=== PATIENT | female | born 1990 | race Caucasian/White ===

== ENCOUNTER 2019-04-20 07:11 | Emergency (ER) | payer SELFPAY ==
[~2019-04-20] VITALS: Ht 177 cm; Wt 99.4 kg
[2019-04-20] MEDS ORDERED: IBUP-1780 PO (07:26)
[2019-04-20] MEDS ORDERED: CYCL10TA9 PO (07:26)
--- NOTE | 2019-04-20 07:27 | ED Lower Extremity ---
General Chief Complaint: Lower Extremity Stated Complaint: LT KNEE INJURY Source: patient Exam Limitations: no limitations History of Present Illness Date Seen by Provider: Apr 20, 2019 Time Seen by Provider: 07:24 Initial Comments Patient states she slipped and fell 3 days ago in her home. Landed (falling forward) on her left knee. since then having pain in left thigh and hip. Pain w certain movement. No pain at rest. Able to bear weight. No bruising or swelling. No pain in knee joint. Allergies and Home Medications Allergies Coded Allergies: No Known Drug Allergies (Unverified , 04/20/19) Home Medications Cyclobenzaprine HCl 10 Mg Tablet, 10 MG PO HS Prescribed by: JOSHUA WHEAT on 04/20/19725 Ibuprofen 800 Mg Tablet, 800 MG PO Q8H PRN for PAIN-MILD Prescribed by: JOSHUA WHEAT on 04/20/19725 Patient Home Medication List Home Medication List Reviewed: Yes Review of Systems Constitutional: no symptoms reported Musculoskeletal: see HPI; No back pain, No joint pain, No joint swelling; muscle pain, muscle stiffness; No muscle cramps, No muscle twitching, No muscle weakness, No neck pain Skin: no symptoms reported Past Fwejefb-Xacout-Ioxnww Hx Past Med/Social Hx: Reviewed Nursing Past Med/Soc Hx Patient Social History Recent Foreign Travel: No Physical Exam Vital Signs Capillary Refill : Height, Weight, BMI Height: '" Weight: lbs. oz. kg; BMI Method: General Appearance: WD/WN, no apparent distress Back: normal inspection, no CVA tenderness, no vertebral tenderness Hips: bilateral hip non-tender, bilateral hip normal inspection, bilateral hip normal range of motion, bilateral hip no evidence of injury Legs: bilateral leg non-tender, bilateral leg normal inspection, bilateral leg normal range of motion, bilateral leg no evidence of injury Knees: bilateral knee non-tender, bilateral knee normal inspection, bilateral knee normal range of motion, bilateral knee no evidence of injury Ankles: bilateral ankle non-tender, bilateral ankle normal inspection, bilateral ankle normal range of motion, bilateral ankle no evidence of injury Neurologic/Tendon: normal sensation, normal motor functions Neurologic/Psychiatric: alert, normal mood/affect Skin: normal color, warm/dry; No ecchymosis Progress/Results/Core Measures Progress Progress Note : Progress Note Minimal trauma w simple fall to floor at home. Normal exam without significant clinical findings. Symptomatic care and follow-up advised. Work note written for today, without restrictions. Departure Impression Primary Impression: Strain of knee and leg, left Qualified Codes: S86.912A - Strain of unspecified muscle(s) and tendon(s) at lower leg level, left leg, initial encounter Disposition: HOME, SELF-CARE Condition: Stable Departure-Patient Inst. Decision time for Depature: 07:24 Referrals: NO,LOCAL PHYSICIAN (PCP/Family) Primary Care Physician Patient Instructions: Lower Extremity Muscle Strain Scripts Ibuprofen (Ibuprofen) 800 Mg Tablet 800 MG PO Q8H PRN for PAIN-MILD, #30 TAB Prov: JOSHUA WHEAT DO 04/20/19 Cyclobenzaprine HCl (Cyclobenzaprine HCl) 10 Mg Tablet 10 MG PO HS for Spasms, #14 TAB Prov: JOSHUA WHEAT DO 04/20/19 Work/School Note: Work Release Form Date Seen in the Emergency Department: Apr 20, 2019 Return to Work: Apr 20, 2019 Restrictions: No Restrictions JOSHUA WHEAT DO Apr 20, 2019 07:27
[2019-04-20 07:31] VITALS: BP 150/84
== END 2019-04-20 07:34 | disposition home or self-care (01) ==
LOC: ER FS 07:12
DX: S86.912A Strain of unspecified muscle(s) and tendon(s) at lower leg level, left leg, initial encounter (principal); W01.0XXA Fall on same level from slipping, tripping and stumbling without subsequent striking against object, initial encounter; Y92.009 Unspecified place in unspecified non-institutional (private) residence as the place of occurrence of the external cause
CPT/HCPCS: 99282

== ENCOUNTER 2022-07-20 19:22 | Emergency (ER) | payer SELFPAY ==
[~2022-07-20] VITALS: Ht 180.3 cm; Wt 104.5 kg
[~2022-07-20 19:22] MED LIST: CYCL10TA25 PO; IBUP-1780 PO
[2022-07-20 19:27] VITALS: BP 138/87
[2022-07-20] MEDS ORDERED: AUGMENTIN 875 MG TAB (AMOXICILLIN/CLAVULANATE) PO STA (19:32)
[2022-07-20] MEDS ORDERED: AMOX1TAB12 PO ×2 (20:01→20:21)
--- NOTE | 2022-07-20 20:02 | ED Upper Extremity ---
General Chief Complaint: Bite-Animal/Human/Insect Stated Complaint: CAT BITE, R ARM LAC Nursing Triage Note: Patient states that her two cats began fighting at home. She was trying to split them up and she got bitten in the process. Patient has a small laceration the the right wrist. 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 Source: patient Exam Limitations: no limitations History of Present Illness Date Seen by Provider: July 20, 2022 Time Seen by Provider: 19:27 Initial Comments 31-year-old female with no pertinent past medical history coming in after she was bitten in her arm by a cat. She had 2 cats fighting at home, she tried to break it up, and got bitten on her right wrist with a small laceration. Happened roughly 30 minutes prior to arrival. Tetanus is up-to-date. She has not taken any medicines for pain as of yet. Otherwise denying any other acute complaints Allergies and Home Medications Allergies Coded Allergies: No Known Drug Allergies (Unverified , 04/20/19) Patient Home Medication List Home Medication List Reviewed: Yes Amoxicillin/Potassium Clav (Amox Tr-K Clv 875-125 mg Tab) 875 Mg-125 Mg Tablet, 1 EACH PO Q12H Prescribed by: SUHAIL SINGLETON on 07/20/222000 Cyclobenzaprine HCl (Cyclobenzaprine HCl) 10 Mg Tablet, 10 MG PO HS Prescribed by: JOSHUA WHEAT on 04/20/19 07 Ibuprofen (Ibuprofen) 800 Mg Tablet, 800 MG PO Q8H PRN for PAIN-MILD Prescribed by: JOSHUA WHEAT on 04/20/19 0726 Review of Systems Constitutional: No fever EENTM: no symptoms reported Respiratory: no symptoms reported Cardiovascular: no symptoms reported Musculoskeletal: see HPI Skin: see HPI Psychiatric/Neurological: No Symptoms Reported Past Wewafaa-Fqlwvg-Aqnbox Hx Patient Social History Tobacco Use?: Yes Substance use?: Yes Substance type: Marijuana Alcohol Use?: No Pt feels they are or have been: No Immunizations Up To Date COVID19 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 oz. kg; 32.00 BMI Method: General Appearance: WD/WN, no apparent distress HEENT: PERRL/EOMI Neck: normal inspection Cardiovascular: regular rate, rhythm Respiratory: no respiratory distress, no accessory muscle use Shoulder: normal inspection, non-tender, no evidence of injury, normal ROM Elbow/Forearm: normal inspection, non-tender, no evidence of injury, normal ROM Wrist: Yes soft tissue tenderness (1 cm laceration to the dorsal aspect of the right wrist that is superficial with a couple punctate puncture wounds as well in the same area, neurovascularly intact distal to the injury, normal tendon exam) Neurologic/Tendon: normal sensation, normal motor functions, normal tendon functions Neurologic/Psychiatric: no motor/sensory deficits, alert, normal mood/affect Skin: normal color, warm/dry Procedures/Interventions Wound Location: Upper Extremities Other Wound Location right wrist Wound Length (cm): 1 Wound's Depth, Shape: superficial Wound Explored: clean Irrigated w/ Saline (ccs): 500 Anesthesia: 1% Lidocaine Volume Anesthetic (ccs): 2 Suture: Ethlion Suture Size: 4-0 Number of Sutures: 1 Progress The laceration was loosely closed with 1 suture given it was an animal bite after extensive cleaning. Patient will go home on antibiotics. She tolerated the procedure well Progress/Results/Core Measures Results/Orders My Orders Orders - SUHAIL SINGLETON MD Amoxicillin/Clavulanate Tablet (Augmenti (07/20/22 19:32) Vital Signs/I&O 07/20/22 19:27 Temp 36.3 Pulse 68 Resp 16 B/P (MAP) 138/87 (104) Pulse Ox 96 O2 Delivery Room Air Blood Pressure Mean: 104 Progress Progress Note : Progress Note 31-year-old female presenting after a cat bite. ABCs were intact and vitals were stable on presentation. Physical exam with a couple punctate wounds to her right wrist and a small laceration that is superficial. The wound was cleaned extensively, tetanus is up-to-date, it was numbed, and the laceration was closed with a blue suture. She was given Augmentin here and will go home on antibiotics as well. I believe she is otherwise stable for discharge with outpatient follow-up. She was sent home with strict return precautions Departure Impression Primary Impression: Cat bite Qualified Codes: W55.01XA - Bitten by cat, initial encounter Additional Impression: Laceration Disposition: HOME, SELF-CARE Condition: Stable Departure-Patient Inst. Decision time for Depature: 20:20 Referrals: NO,LOCAL PHYSICIAN (PCP/Family) Primary Care Physician Patient Instructions: Laceration Repair With Stitches (DC) Add. Discharge Instructions: The stitches need to come out in 7 to 10 days. If you have any redness spreading up your skin, pus coming out of the wound, or new fever with it, we would want you to be evaluated by doctor. Take ibuprofen or Tylenol as needed for pain. You will be on antibiotics for the next week. Scripts Amoxicillin/Potassium Clav (Amox Tr-K Clv 875-125 mg Tab) 875 Mg-125 Mg Tablet 1 EACH PO Q12H for 7 Days, #14 TAB Prov: SUHAIL SINGLETON MD 07/20/22 Work/School Note: Work Release Form Date Seen in the Emergency Department: July 20, 2022 Return to Work: July 21, 2022 Restrictions: No Restrictions SUHAIL SINGLETON MD July 20, 2022 20:02
== END 2022-07-20 20:17 | disposition home or self-care (01) ==
LOC: EDUNIT# 19:22 → ER FS 19:24
DX: S61.511A Laceration without foreign body of right wrist, initial encounter (principal); S61.531A Puncture wound without foreign body of right wrist, initial encounter; W55.01XA Bitten by cat, initial encounter; Y92.009 Unspecified place in unspecified non-institutional (private) residence as the place of occurrence of the external cause
CPT/HCPCS: 12031